=== PATIENT | female | born 1985 | race Caucasian/White ===

== ENCOUNTER 2023-05-11 11:34 | Emergency (ER) | payer BC, SELFPAY ==
[2023-05-11 11:36] VITALS: BP 151/104
[2023-05-11 12:00] VITALS: BMI 46.3
[2023-05-11] MEDS: DUONEB 3 ML INH (12:26)
[2023-05-11] MEDS: DELTASONE 50 MG PO (12:26)
--- NOTE | 2023-05-11 12:33 | ED.GENMED ---
History of Present Illness
General
Chief Complaint: Breathing Problem
Source: patient
Time Seen by Provider: 05/11/23 12:05
Travel History
Have you had any contact with someone who has COVID-19?: No
Do you have any symptoms of coronavirus? Fever > 100 degrees, chills, cough, shortness of breath, sore throat, loss of taste or smell, muscle aches, or headache?: No
History of Present Illness
History of Present Illness:
37-year-old female with past medical history of asthma presenting to the emergency department for evaluation of an asthma episode that started yesterday after she worked out for the first time in a while, took 2 puffs out of her albuterol inhaler
and felt better but after awakening this morning started to feel short of breath and wheezing again so she took an additional 2 puffs of her inhaler but did not feel any better prompting her to come to the ER for further evaluation. Patient notes
that she was admitted in November for pneumonia and was treated for this without any complication but notes that she has not had to come to the emergency department for an asthma flare since high school she denies any fevers, chills, rigors, sore
throat or any other recent URI-like symptoms. Patient states she believes weather change could possibly be a potential trigger. She has no other concerns at this time.
Past History
Past History
ED Past Medical History: Asthma, Psychiatric (a/d), Other (Crohn's disease, pelvic abscess 2006) and Other (PCOS)
ED Past Surgical History: Appendectomy, Bowel resection, Cholecystectomy, Tonsilectomy and Other
Social History
Tobacco: Non-smoker
Alcohol: Occasional
Drug: None
Personal:
Living: with family
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
Family History
Family History: Other (Noncontributory)
Review of Systems
Review of Systems
All Other Systems: ROS reviewed and negative except as documented in HPI and ROS
Phy Exam
Physical Exam
Physical Exam:
GENERAL: Alert , in no apparent distress
EYE: conjunctiva clear
NECK: Supple
ENT: o/p clr, mmm.
CARDIAC: Regular rate and rhythm
LUNGS: Clear breath sounds bilaterally, no acute respiratory distress, very faint end expiratory phase wheeze within the apices bilaterally, will cough following deep inspiration
NEUROLOGICAL: Alert and oriented
SKIN: Warm and dry, skin intact.
MUSCULOSKELETAL: well perfused.
PSYCH: Normal and appropriate interaction.
Scores
Heart Failure Risk
Heart Failure Risk Score: Not Applicable
Heart Score for Chest Pain Patients
STEMI patient?: Not applicable
Withdrawal Assessment of Alcohol
Withdrawal Assessment Completed?: Not applicable
Course
Orders/Labs/Results
Orders:
Orders
05/11/23 12:12
Ipratropium/Albuterol Sulfate [Duoneb] 3 ml INH R NOW STA
Prednisone [Deltasone] 50 mg PO NOW STA
Vital Signs
Initial and Last Documented VS:
Initial Vital Signs
Temp Pulse Resp BP Pulse Ox
98.3 F 111 24 151/104 98
05/11/23 11:36 05/11/23 11:36 05/11/23 11:36 05/11/23 11:36 05/11/23 11:36
Last Documented Vital Signs
Temp Pulse Resp BP Pulse Ox
98 F 104 18 121/69 97
05/11/23 14:18 05/11/23 14:18 05/11/23 14:18 05/11/23 14:18 05/11/23 14:18
MDM/Problems Addressed
Differential Diagnosis Includes:
Mild asthma exacerbation, less concern for infectious etiology, pneumonia, COVID, flu
MDM/Problems Addressed:
37-year-old female presenting the emergency department for evaluation of possible asthma exacerbation. Patient believes trigger may be weather but also notes that she worked out recently for the first time yesterday and a while. Patient notes that
since arriving to the emergency department she actually feels better than she did prior to coming here. Very minimal wheeze on exam. Will treat with a DuoNeb and 50 mg dose of prednisone. Reassessment.
Chronic conditions affecting care: Asthma
Acute Exacerbation and/or Progression of Chronic Illness: Asthma
*Pulse Oximetry
Patient hypoxic: no
*Critical Care Note
Total Time (30-74mins, 75-104mins- exclusive of procedures): Not Applicable
Comment
Comment:
On reevaluation patient states she feels much improved and feels comfortable to go home and follow-up with her primary care physician as an outpatient. The prescription for DuoNeb and prednisone were sent to pharmacy. She was provided with a
nebulizer machine for home use. Aware of return precautions but otherwise stable for discharge home.
ED Attending Note
-
Portions of this chart may have been created with voice recognition software.� Occasional wrong word or��sound alike� substitutions may have occurred due to the inherent limitations of voice recognition software.
Discharge Plan
Departure
Patient Disposition: Home (Routine Discharge)
Date of Disposition: 05/11/23
Time of Disposition: 13:49
Patient with high blood pressure during this ER visit?: Yes
Discharge Problem:
Asthma exacerbation
Instructions: Asthma, Adult (DC)
Prescriptions:
New
prednisone 50 mg tablet
50 mg PO DAILY Qty: 4 0RF
ipratropium-albuterol 0.5 mg-3 mg(2.5 mg base)/3 mL solution for nebulization
3 ml inhalation QID PRN (Reason: shortness of breath or wheezing) Qty: 180 0RF
No Action
Humira 40 MG/0.8 ML syringe kit
1 units SC Q2W
Patient Comments:
pt. states 'I take one injection every other week.' not sure on the dosage, thinks it is 40mg.
acetaminophen 325 MG tablet
650 mg PO Q4HPRN PRN (Reason: mild pain) 0RF
pantoprazole 40 MG tablet,delayed release (DR/EC)
40 mg PO DAILY Qty: 30 0RF
melatonin 5 MG tablet
5 mg PO HS PRN (Reason: sleep)
acetaminophen [Tylenol Extra Strength] 500 MG tablet
1,000 mg PO Q6HPRN PRN (Reason: mild pain) Qty: 1 0RF
dextroamphetamine-amphetamine [Adderall] 10 mg Tablet
10 mg PO BID
Patient Comments:
07/22/2022: last filled 04/12/22, 60 tabs for 30 days from [facility]
loratadine [Claritin] 10 mg Tablet
10 mg PO DAILY PRN (Reason: allergies)
dicyclomine 20 mg tablet
20 mg PO TID PRN (Reason: abdominal pain) Qty: 14 0RF
ondansetron 4 mg tablet,disintegrating
4 mg PO TID PRN (Reason: nausea and vomiting) Qty: 20 0RF
albuterol sulfate [ProAir HFA] 90 mcg/actuation HFA aerosol inhaler
2 puff inhalation Q4HPRN PRN (Reason: shortness of breath) Qty: 8.5 0RF
norgestimate-ethinyl estradiol [Tuyet] 0.25-35 mg-mcg tablet
1 tab PO DAILY
levofloxacin 750 mg tablet
750 mg PO DAILY
prednisone 10 mg tablet
10 mg PO DIRECTED Qty: 12 0RF
Rx Instructions:
30mg for 2 days
20mg for 2 days
10mg for 2 days
Referrals:
Deacon Cole MD [Family Provider] -
Interventions
Interventions:
*Risk Screen - Suicide Last Done: 05/11/23 12:00
*General Assessment Last Done: 05/11/23 12:00
*Neglect/Abuse Screening Last Done: 05/11/23 12:00
ED- Fall Risk Assessment Last Done: 05/11/23 12:00
*ED COVID-19 Vaccine History Last Done: 05/11/23 12:00
*Nursing Disposition Last Done: 05/11/23 14:20
ED- Cardiac Assessment Last Done: 05/11/23 12:00
ED- Pulmonary Assessment Last Done: 05/11/23 12:00
Discharge Date and Time
Discharge Date/Time: 05/11/23 14:21
[2023-05-11 14:18] VITALS: BP 121/69
== END 2023-05-11 14:21 | disposition home or self-care (01) ==
LOC: EMR 11:34
PROVIDERS: EMERGENCY PHYSICIAN Emergency Medicine; FAMILY PHYSICIAN Family Medicine
DX: J45.901 Unspecified asthma with (acute) exacerbation (principal); R03.0 Elevated blood-pressure reading, without diagnosis of hypertension
CPT/HCPCS: 99283; 94640

== ENCOUNTER 2024-07-21 23:35 | Emergency (ER) | payer BC, SELFPAY ==
[2024-07-21 23:57] VITALS: BP 164/120
--- NOTE | 2024-07-22 06:21 | ED.GENMED ---
History of Present Illness
General
Chief Complaint: Abdominal Pain
Source: patient
Exam Limitations: none
Time Seen by Provider: 07/22/24 06:07
History of Present Illness
History of Present Illness:
38yoF with a history of Crohn's disease on Humira, prediabetes, and obesity presenting for evaluation of abdominal pain. She started with diarrhea 3 days ago. She is having watery bowel movements about every hour. She started with abdominal pain
yesterday primarily in her LUQ although pain radiates throughout the entire abdomen. Pain is colicky and coming in waves. She reports having cold sweats earlier but denies any fevers. She reports nausea without vomiting. Of note, patient started
on Mounjaro about 3 weeks ago. She denies any hematochezia or urinary symptoms. Last menstrual period was a few months which is not usual for her due to her PCOS. Previous abdominal surgeries include a ileocecectomy, ileostomy with subsequent
reversal, sigmoidectomy, cholecystectomy, and tubal ligation.
Past History
Past History
ED Past Medical History: Asthma, Psychiatric (a/d), Other (Crohn's disease, pelvic abscess 2006) and Other (PCOS)
ED Past Surgical History: Appendectomy, Bowel resection, Cholecystectomy, Tonsilectomy and Other
Social History
Tobacco: Non-smoker
Alcohol: Occasional
Drug: None
Personal:
Living: with family
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
Family History
Family History: Other (Noncontributory)
Phy Exam
General Physical Exam
General Presentation: well appearing and no apparent distress
General age: appears stated age
General Skin: warm and dry
General Habitus: normal
General Mental: alert
ENT Exam
ENT Exam: normocephalic
Eye Exam
Eye Exam: conjunctiva normal
Pulmonary Exam
Pulmonary Exam: no respiratory distress
Gastrointestinal Exam
Gastrointestinal Exam: soft, non distended and other (+Mild tenderness in epigastrium and LUQ. No rebound or guarding.)
Neurological Exam
Neurological Exam: alert
[place] Coma Scale
Eye Opening: Spontaneous
Verbal Response: Oriented
Motor Response: Obeys Commands
GCS Total Score: 15
Skin Exam
Skin Exam: normal color and warm/dry
Psychiatric Exam
Psychiatric Exam: normal mood/affect
Sepsis
Sepsis Screening
Sepsis Assessment: Sepsis Ruled Out
Sepsis Screen
Sepsis Screen: Sepsis Ruled Out
Date: 07/22/24
Time: 15:11
Course
Orders/Labs/Results
Orders:
Orders
07/22/24 00:01
Test Result ONCE
07/22/24 06:20
CT Abd/pel W Iv And Oral Contr Urgent
Comment:
Reason For Exam: LUQ pain, diarrhea
0.9% Sodium Chloride 1000 ml [Nss] 1,000 ml IV BOLUS
Iohexol [Omnipaque] See Protocol PO NOW STA
Ketorolac [Toradol] 15 mg IV NOW STA
07/22/24 07:07
CRP [C-Reactive Protein] Urgent
Complete Blood Count/With Diff Urgent
Comprehensive Metabolic Panel Urgent
HCG, Serum Qualitative Screen Urgent
Lipase Urgent
07/22/24 07:23
Ondansetron Injectable [Zofran] 4 mg IV NOW STA
07/22/24 08:56
Morphine Sulfate 4 mg IV NOW STA
07/22/24 09:10
CDIFF [C difficile Antigen & Toxins] Urgent
DAVE Source: Feces/Stool
Specimen Description:
Date Specimen was Collected: 07/22/24
Time Specimen was Collected: 08:45
Norovirus by PCR Urgent
DAEV Source: Feces/Stool
Specimen Description:
Date Specimen was Collected: 07/22/24
Time Specimen was Collected: 08:45
Stool Culture Urgent
DAVE Source: Feces/Stool
Specimen Description:
Date Specimen was Collected: 07/22/24
Time Specimen was Collected: 08:45
Abnormal Lab Results
07/22/24
07:07
WBC 13.1 H 10^3/uL
(4.8-10.8)
RBC 5.81 H 10^6/uL
(4.20-5.40)
MCV 76.8 L fL
(81.0-99.0)
MCH 24.4 L pg
(27.0-31.0)
MCHC 31.8 L g/dL
(33.0-37.0)
RDW 15.8 H %
(11.5-14.5)
Plt Count 408 H 10^3/uL
(130-400)
Abs Immat Gran (auto) 0.1 H 10^3/uL
(0-0.05)
Absolute Neuts (auto) 7.5 H 10^3/uL
(1.4-6.5)
Absolute Lymphs (auto) 4.3 H 10^3/uL
(1.2-3.4)
Absolute Monos (auto) 0.7 H 10^3/uL
(0.1-0.6)
Chloride 111 H mmol/L
(98-107)
Carbon Dioxide 21 L mmol/L
(22-30)
BUN 23 H mg/dl
(7-17)
Glucose 114 H mg/dl
(70-99)
Alkaline Phosphatase 133 H U/L
(38-126)
C-Reactive Protein 32.80 H mg/L
(0.0-10.00)
07/22/24 07:07
07/22/24 07:07
Vital Signs
Temp: 97.6 F
Initial and Last Documented VS:
Initial Vital Signs
Pulse Resp BP Pulse Ox
126 26 164/120 96
07/21/24 23:57 07/21/24 23:57 07/21/24 23:57 07/21/24 23:57
Last Documented Vital Signs
Temp Pulse Resp BP Pulse Ox
97.6 F 91 16 131/101 97
07/22/24 06:28 07/22/24 10:57 07/22/24 10:06 07/22/24 10:55 07/22/24 10:55
MDM/Problems Addressed
Differential Diagnosis Includes:
38yoF here with LUQ pain x 1 day and watery diarrhea x 3 days. No fevers or hematochezia. Hx of Crohn's. Recently started on Mounjaro 3 weeks ago. HR 126 in triage. Temp 97.6 on initial exam. She is well appearing in no distress. No signs of
peritonitis on abdominal exam. Differential diagnosis includes but is not limited to: gastroenteritis, colitis, Crohn's flare, pancreatitis
Initial ED plan: Check abdominal labs, CRP, stool studies, and CT abdomen with IV/PO contrast. IV Toradol and fluid bolus for symptoms.
*Critical Care Note
Total Time (30-74mins, 75-104mins- exclusive of procedures): Not Applicable
Update Note
Update Note:
Leukocytosis noticed with a white count of 13. CRP elevated at 32. Lipase within normal limits. CT shows no significant abnormality. There is no inflammatory changes in the bowel. Patient feeling improved on reassessment. No indication for
hospitalization. Stool studies sent and are pending. She was advised to follow-up with her gastroenterology team and ED return precautions reviewed. Patient in agreement with plan and was discharged in stable condition.
ED Attending Note
-
Portions of this chart may have been created with voice recognition software.� Occasional wrong word or��sound alike� substitutions may have occurred due to the inherent limitations of voice recognition software.
Discharge Plan
Departure
Patient Disposition: Home (Routine Discharge)
Date of Disposition: 07/22/24
Time of Disposition: 10:40
Patient with high blood pressure during this ER visit?: Yes
Discharge Problem:
Left upper quadrant abdominal pain, Acute diarrhea
Instructions: Abdominal Pain
Prescriptions:
New
ondansetron 4 mg tablet,disintegrating
4 mg PO Q6H PRN (Reason: nausea and vomiting) Qty: 20 0RF
No Action
Humira 40 MG/0.8 ML syringe kit
1 units SC Q2W
Patient Comments:
pt. states 'I take one injection every other week.' not sure on the dosage, thinks it is 40mg.
acetaminophen 325 MG tablet
650 mg PO Q4HPRN PRN (Reason: mild pain) 0RF
pantoprazole 40 MG tablet,delayed release (DR/EC)
40 mg PO DAILY Qty: 30 0RF
melatonin 5 MG tablet
5 mg PO HS PRN (Reason: sleep)
acetaminophen [Tylenol Extra Strength] 500 MG tablet
1,000 mg PO Q6HPRN PRN (Reason: mild pain) Qty: 1 0RF
dextroamphetamine-amphetamine [Adderall] 10 mg Tablet
10 mg PO BID
Patient Comments:
07/22/2022: last filled 04/12/22, 60 tabs for 30 days from [facility]
loratadine [Claritin] 10 mg Tablet
10 mg PO DAILY PRN (Reason: allergies)
dicyclomine 20 mg tablet
20 mg PO TID PRN (Reason: abdominal pain) Qty: 14 0RF
ondansetron 4 mg tablet,disintegrating
4 mg PO TID PRN (Reason: nausea and vomiting) Qty: 20 0RF
albuterol sulfate [ProAir HFA] 90 mcg/actuation HFA aerosol inhaler
2 puff inhalation Q4HPRN PRN (Reason: shortness of breath) Qty: 8.5 0RF
norgestimate-ethinyl estradiol [Tuyet] 0.25-35 mg-mcg tablet
1 tab PO DAILY
levofloxacin 750 mg tablet
750 mg PO DAILY
prednisone 10 mg tablet
10 mg PO DIRECTED Qty: 12 0RF
Rx Instructions:
30mg for 2 days
20mg for 2 days
10mg for 2 days
prednisone 50 mg tablet
50 mg PO DAILY Qty: 4 0RF
ipratropium-albuterol 0.5 mg-3 mg(2.5 mg base)/3 mL solution for nebulization
3 ml inhalation QID PRN (Reason: shortness of breath or wheezing) Qty: 180 0RF
Referrals:
Cory Delvalle MD [Active] -
Deacon Cole MD [Family Provider] -
Activity Restrictions/Additional Instructions:
Stool studies are pending. We will call you if anything is positive.
Take Zofran as needed for nausea.
Please call your gastroenterology team today for follow-up. Return to the ER with any worsening symptoms including fevers or severe pain.
Interventions
Interventions:
*Risk Screen - Suicide Last Done: 07/21/24 23:57
*General Assessment Last Done: 07/22/24 07:16
*Neglect/Abuse Screening Last Done: 07/21/24 23:57
*ED- Fall Risk Assessment Last Done: 07/22/24 07:16
*ED COVID-19 Vaccine History Last Done: 07/22/24 07:16
*Nursing Disposition Last Done: 07/22/24 10:58
KR-Qtvbrr-Ffrrzoaxvo Assessment Last Done: 07/22/24 07:16
Discharge Date and Time
Discharge Date/Time: 07/22/24 11:03
Print Language: IRISH
[2024-07-22 07:08] VITALS: BP 142/101
[2024-07-22] MEDS: NSS 1000 IV (07:10)
[2024-07-22] MEDS: TORADOL 15 MG IV (07:11)
[2024-07-22] MEDS: OMNIPAQUE 50 ML PO (07:11)
[2024-07-22 07:15] VITALS: BMI 48.4
[2024-07-22] MEDS: ZOFRAN 4 MG IV (07:26)
[2024-07-22 07:28] LABS: HCG, Serum Qualitative Screen Negative
[2024-07-22 07:31] LABS: ALT (SGPT) 30 U/L (0-35); AST (SGOT) 21 U/L (14-36); Albumin 4.8 g/dl (3.5-5.0); Alkaline Phosphatase 133 U/L (38-126); Blood Urea Nitrogen 23 mg/dl (7-17); Carbon Dioxide 21 mmol/L (22-30); Chloride 111 mmol/L (98-107); Estimated Creatinine Clearance 114 ml/min; Glucose 114 mg/dl (70-99); Lipase 61 U/L (23-300); Potassium 4.3 mmol/L (3.5-5.1); Sodium 143 mmol/L (135-145); Total Bilirubin 0.4 mg/dl (0.2-1.3); Total Protein 8.2 g/dl (6.3-8.2); eGFR > 60.00
[2024-07-22 07:49] LABS: % Basophils 0.3 % (0-2); % Eosinophils 4.3 % (0-6); % Immature Granulocytes 0.5 % (0-0.5); % Lymphocytes 32.5 % (20.5-51.1); % Monocytes 5.4 % (1.7-9.3); Absolute Eosinophils 0.6 10^3/uL (0-0.7); Absolute Immature Granulocytes 0.1 10^3/uL (0-0.05); Absolute Lymphocytes 4.3 10^3/uL (1.2-3.4); Absolute Monocytes 0.7 10^3/uL (0.1-0.6); Absolute Neutrophils 7.5 10^3/uL (1.4-6.5); Hematocrit 44.6 % (37.0-47.0); Hemoglobin 14.2 g/dL (12.0-16.0); Mean Corp Hgb Conc. 31.8 g/dL (33.0-37.0); Mean Corpuscular Hgb 24.4 pg (27.0-31.0); Mean Corpuscular Volume 76.8 fL (81.0-99.0); Mean Platelet Volume 9.2 fL (7.4-10.4); Nucleated Red Blood Cells % 0 %; Platelet Count 408 10^3/uL (130-400); Red Blood Cell Count 5.81 10^6/uL (4.20-5.40); Red Cell Dist. Width 15.8 % (11.5-14.5); White Blood Cell Count 13.1 10^3/uL (4.8-10.8)
[2024-07-22 08:00] VITALS: BP 146/97
[2024-07-22] MEDS: MORPHINE SULFATE 4 MG IV (09:08)
[2024-07-22 10:00] VITALS: BP 148/95
[2024-07-22 10:55] VITALS: BP 131/101
== END 2024-07-22 11:03 | disposition home or self-care (01) ==
LOC: EMR 23:35
PROVIDERS: Emergency Medicine; Physician Assistant; EMERGENCY PHYSICIAN Emergency Medicine; FAMILY PHYSICIAN Family Medicine
DX: R10.12 Left upper quadrant pain (principal); R19.7 Diarrhea, unspecified; R10.9 Unspecified abdominal pain; K50.90 Crohn's disease, unspecified, without complications; E66.9 Obesity, unspecified; E28.2 Polycystic ovarian syndrome; J45.909 Unspecified asthma, uncomplicated; Z90.49 Acquired absence of other specified parts of digestive tract
CPT/HCPCS: 99284; 96374; 96375; 96361; 74177; 80053; 83690; 84703; 85025; 86140; 87045; 87046; 87324; 87427; 87449; 87798; Q9967